=== PATIENT | female | born 1985 | race Caucasian/White ===

== ENCOUNTER 2019-08-13 12:47 | Outpatient (CLI) | payer OTHER ==
[2019-08-13 13:11] LABS: BASOPHILS % (AUTO) 0.2 %; EOSINOPHILS # (AUTO) 0.1 10^3/uL (0.0-0.7); EOSINOPHILS % (AUTO) 1.1 %; HGB - HEMOGLOBIN 14.4 g/dL (12.0-16.0); LYMPHOCYTES # (AUTO) 1.2 10^3/uL (1.5-3.5); LYMPHOCYTES % (AUTO) 14.1 %; MEAN CORPUSCULAR HEMOGLOBIN 30.8 pg (27.0-31.0); MEAN CORPUSCULAR HGB CONC 33.1 g/dL (32.0-36.0); MEAN CORPUSCULAR VOLUME 92.9 fL (81.0-99.0); MEAN PLATELET VOLUME 10.7 fL (7.9-10.8); MONOCYTES # (AUTO) 0.9 10^3/uL (0.0-1.0); MONOCYTES % (AUTO) 10.7 %; NEUTROPHILS % (AUTO) 73.3 %; PLT - PLATELET COUNT 171 10^3/uL (130-450); RED BLOOD COUNT 4.68 10^6/uL (4.20-5.40); WHITE BLOOD COUNT 8.2 x10^3/uL (4.8-10.8)
[2019-08-13 13:12] LABS: BILIRUBIN,URINE NEGATIVE (NEGATIVE); GLUCOSE, URINE (UA) NEGATIVE (NEGATIVE); KETONES,URINE (UA) NEGATIVE (NEGATIVE); LEUKOCYTE ESTERASE, URINE TRACE (NEGATIVE); NITRITE,URINE NEGATIVE (NEGATIVE); OCCULT BLOOD,URINE NEGATIVE (NEGATIVE); PH,URINE 5.5 PH (5.0-7.5); PROTEIN,URINE NEGATIVE (NEGATIVE); UROBILINOGEN,URINE 0.2 (NORMAL) E.U./dL (NORMAL)
[2019-08-13 13:13] LABS: CLARITY,URINE HAZY (CLEAR)
[2019-08-13 13:30] LABS: BACTERIA,URINE Moderate /HPF (None Seen); RBC,URINE 0-5 /HPF (0-5); SQUAMOUS EPITHELIAL CELL,UR MOD Squamous (<= Few)
== END 2019-08-13 12:48 | disposition home or self-care (01) ==
LOC: LAB 12:47
PROVIDERS: ATTEND Obstetrics & Gynecology
DX: Z01.812 Encounter for preprocedural laboratory examination (principal); O34.211 Maternal care for low transverse scar from previous cesarean delivery; Z3A.00 Weeks of gestation of pregnancy not specified
CPT/HCPCS: 36415; 81001; 81003; 85025; 86850; 86900; 86901

== ENCOUNTER 2019-08-14 06:54 | Inpatient (IN) | payer OTHER ==
--- NOTE | 2019-08-14 07:28 | HISTORY & PHYSICAL EXAMINATION ---
Admit History - Visit Reason Visit Reason: Other (planned RLTCD) - : 3 Parity: 1 Premature: 0 Ectopic: 0 : 1 Care: positive: Codi Risk/History: positive: Previous Complications This : positive: None Smoking Status: Never smoker - Mother's Labs Mother's Blood Type: positive: O Mother's RH: positive: Positive GBS: positive: Group B Step Negative Rubella Status: positive: Immune - Other Maternal History Other Maternal History: Abnl 1h, normal 3h GTT. Medical hx notable for Kawasaki's disease at age 4 with normal TTE and SAVAGE in [place] in adulthood. also c/b excessive wt gain. Meds/Allgy - Home Medications Home Medications: Ambulatory Orders Medication Instructions Recorded Confirmed Vitamin [Trinatal Rx 1] 08/14/19 - Allergies Allergies/Adverse Reactions: Allergies Allergy/AdvReac Type Severity Reaction Status Date / Time No Known Drug Allergies Allergy Verified 08/14/19 07:27 Review of Systems - Constitutional Constitutional: denies: Fever, Chills - Cardiovascular Cariovascular: denies: Palpitations, Chest pain - Respiratory Respiratory: denies: Cough, SOB at rest - Gastrointestinal Gastrointestinal: denies: Abdominal pain - Genitourinary Genitourinary: denies: Dysuria - Integumentary Integumentary: denies: Rash - Psychiatric Psychiatric: reports: Anxiety Physical - Abdominal Exam Contraction Frequency (min/apart): none Uterine Resting Tone: positive: Soft - Monitoring Heart Rate Baseline: 130 Strip Review: positive: Category I - Presentation Presentation: positive: Vertex (by River[facility]) - Vaginal Exam Membranes: positive: Membranes intact Plan for Labor - Plan For Labor I expect patient to be DC'd or transferred within 96 hours.: Yes Plan for Labor: 34 yo here at 39+0 wga presents for planned RLTCD. GBS negative. c/b excessive wt gain and abnl 1h, normal 3h GTT. Maternal hx notable for Kawasaki's disease at age 4 with normal echo in adulthood (at [facility], no records). Surgical hx notable for prior LTCD x 1. Hct 43.5, plts 171. Anterior placenta. EFW 7#. FHR category I, reactive NST. -Admit to L&D -Consents signed/on chart -PPH risk is medium d/t prior -Ancef for SSI prophylaxis -SCDs for VTE prophylaxis -Routine postoperative care, anticipate discharge in 48 hours
[2019-08-14] MEDS ORDERED: ceFAZolin 2 GM in SODIUM CHLORIDE 0.9% 100ML 100 ML IV SCH (09:00)
[2019-08-14] MEDS ORDERED: MORPHINE PF 5 MG/10 ML AMP EP ONE (09:42)
[2019-08-14] MEDS ORDERED: fentaNYL 100 MCG/2 ML VIAL IVP ONE (09:42)
[2019-08-14] MEDS ORDERED: KETOROLAC 30 MG/ML VIAL IVP ONE (09:42)
[2019-08-14] MEDS ORDERED: CITRIC ACID/SODIUM CITRATE 15 ML UDC PO ONE (09:42)
[2019-08-14] MEDS ORDERED: PHENYLEPHRINE 10 MG/ML VIAL IV ONE (09:42)
[2019-08-14] MEDS ORDERED: ONDANSETRON 4 MG/2 ML VIAL IVP ONE (09:42)
[2019-08-14] MEDS ORDERED: ePHEDrine 50 MG/ML VIAL IVP ONE (09:42)
[2019-08-14] MEDS ORDERED: METHYLERGONOVINE 0.2 MG/ML AMP ONE (09:53)
--- NOTE | 2019-08-14 10:01 | ANESTHESIA ---
Pre-Anesthesia VS, & Labs - Diagnosis previous C/S - Procedure repeat C/S Height 5 ft 5 in Weight (kg) 83.915 kg - Is Patient ?: Yes - Lab Results Lab results reviewed: Yes Home Medications and Allergies Home Medications: Ambulatory Orders Vitamin [Trinatal Rx 1] 08/14/19 Active Medications Citric Acid/Sodium Citrate (Bicitra) 15 ml PO ONCE ONE Stop: 08/14/19 09:43 Vitamin [Trinatal Rx 1] 08/14/19 Allergies/Adverse Reactions: Allergies Allergy/AdvReac Type Severity Reaction Status Date / Time No Known Drug Allergies Allergy Verified 08/14/19 07:27 Anes History & Medical History - Anesthetic History Anesthesia Complications: reports: No previous complications Family history of Anesthesia Complications: Denies Family history of Malignant Hyperthermia: Denies - Medical History Cardiovascular: reports: None Pulmonary: reports: None Gastrointestinal: reports: None Musculoskeletal: reports: None Endocrine/Autoimmune: reports: None Blood Disorders: reports: None Smoking Status: Never smoker - Obstetrical History : 3 Parity: 1 Events: positive: Previous Complications: positive: None Exam General: Alert, Oriented x3, Cooperative Dental: WNL Mouth Openin Fingerbreadth Neck Mobility: Normal Mallampati classification: II Thyromental Distance: greater than 6 cm Respiratory: Lungs clear, Normal breath sounds, No respiratory distress Cardiovascular: Regular rate Neurological: Normal speech Mental/Cognitive Status: Alert/Oriented X3, Normal for patient Cognitive Status: Within normal limits Plan Anesthesia Type: Spinal Consent for Procedure(s) Verified and Reviewed: Yes Code Status: Attempt Resuscitation ASA classification: 2-Mild systemic disease Is this case an emergency?: No
[2019-08-14] MEDS ORDERED: LACTATED RINGERS 500 ML IV ONE (10:07)
[2019-08-14] MEDS ORDERED: LACTATED RINGERS 1,000 ML IV ONE ×4 (10:08→15:08)
[2019-08-14] MEDS ORDERED: SODIUM CHLORIDE FLUSH 0.9% 10 ML SYRINGE IVP PRN (11:53)
[2019-08-14] MEDS ORDERED: ONDANSETRON 4 MG/2 ML VIAL IVP PRN (11:53)
[2019-08-14] MEDS ORDERED: LACTATED RINGERS 1,000 ML IV SCH (12:00)
--- NOTE | 2019-08-14 12:02 | OPERATIVE REPORT ---
Operative Report - General Admit Date: 08/14/19 Procedure Date: 08/14/19 Planned Procedure: repeat low transverse delivery Pre-Op Diagnosis: uterus at 39+0 wga, prior uterine scar Procedure Performed: repeat low transverse delivery Post Op Diagnosis: same as above, delivered - Procedure Note Primary Surgeon: Franco Bryant Secondary Surgeon: Espinoza Mendoza Anesthesia Technique: Spinal Pathology: none IV Fluids (mL): 700 Estimated Blood Loss (mL): 600 Urine Output (mL): 40 Indications: prior uterine scar Findings: Viable female with APGARS of 4, 5 and 7. See infant record for further details. No complications. Double layer uterine closure. Normal bilateral ovaries and fallopian tubes. Complications: none - Other Other Information/Narrative: After informed consent was assured, pt was taken to the OR with IV fluids running. Spinal anesthesia was obtained. Pt was positioned dorsal supine with right hip roll. Boudreaux catheter was placed. Doptones following anesthesia were 140s. The patient was prepped and draped in a sterile fashion. Anesthesia was tested and confirmed to be adequate. Body followed controlled. Pfannenstiel incision made through existing scar and carried sharply down to the rectus which was scored on each side. Fascial incision was extended laterally with scissors on each side. The fascia was then dissected off the rectus muscles both caudad and cephalad. The rectus muscles were in the midline and the peritoneum was identified and entered sharply. The peritoneal incision was bluntly extended with good exposure of the lower uterine segment. A bladder flap was created sharply. A transverse incision was made in the lower uterine segment, with amniotomy and return of clear fluid. The incision was extended bluntly with cephalad-caudad traction. The 's head was grasped and delivered through the incision, body followed controlled. Good tone but weak cry on the field; cord was clamped x 2 and cut, infant passed off the field. Cord blood was collected. The placenta was delivered intact with gentle cord traction. The uterus was exteriorized and the cavity was swept with no retained tissue noted. The hysterotomy was reapproximated with a running locked suture of 0 chromic. A second suture of 0 chromic was placed in an embricating layer in a horizontal fashion. Good hemostasis was noted. Good fundal tone throughout repair. The uterus was returned to the abdomen. The fascia was reapproximated with a running suture of 0 PDS. The subcutaneous space was reapproximated with interrupted sutures of 2-0 vicryl to reduce tension on the skin closure. The skin was closed with a subcuticular suture of 4-0 monocryl. Steristrips were placed over the incision and it was covered with a pressure dressing. A final crede expressed small clot and revealed excellent uterine tone. Sponge and instrument counts were correct. No complications appreciated. The patient was stable and was taken to Labor and Delivery to recover.
--- NOTE | 2019-08-14 12:12 | DELIVERY NOTE ---
Delivery Note - Labor Labor: positive: Other (scheduled c/s) - Delivery Method Infant Delivery Method: positive: Repeat - Presentation Presentation: positive: Vertex, BRY - left occiput anterior - Nuchal Cord Nuchal Cord: positive: None - Anesthetic Anesthetic Type: - Amniotic Fluid Description Amniotic Fluid Description: positive: Clear - Delivery Outcome Delivery Outcome: positive: Livebirth - : positive: Stimulated sex: positive: Female - Placenta Placenta: positive: Intact, Expressed - Estimated Blood Loss Estimated Blood Loss (in cc): 600 - Delivery Comments (Free Text/Narrative) Delivery Comments (Free Text/Narrative): Uncomplicated RLTCD of viable female ; 4, 5 and 7. Double layer uterine closure. Normal uterus and ovaries, no significant adhesive disease. See operative report for full details.
[2019-08-14] MEDS: oxyCODONE 5 MG TABLET PO PRN ×3 (14:00→22:05)
[2019-08-14] MEDS: ACETAMINOPHEN 500 MG TABLET PO SCH ×2 (14:00→22:05)
[2019-08-14] MEDS: KETOROLAC 30 MG/ML VIAL IVP SCH (18:00)
[2019-08-14] MEDS: DOCUSATE SODIUM 100 MG CAPSULE PO SCH (20:42)
[2019-08-14] MEDS: SIMETHICONE CHEW 80 MG TABLET PO SCH (20:42)
[2019-08-15] MEDS: KETOROLAC 30 MG/ML VIAL IVP SCH ×3 (00:28→21:13)
[2019-08-15] MEDS: oxyCODONE 5 MG TABLET PO PRN ×6 (02:30→22:27)
[2019-08-15] MEDS: SODIUM CHLORIDE FLUSH 0.9% 10 ML SYRINGE IVP SCH ×2 (03:42→06:21)
[2019-08-15] MEDS: SIMETHICONE CHEW 80 MG TABLET PO SCH ×4 (05:24→21:15)
[2019-08-15 06:05] LABS: BASOPHILS % (AUTO) 0.4 %; EOSINOPHILS # (AUTO) 0.1 10^3/uL (0.0-0.7); EOSINOPHILS % (AUTO) 1.1 %; HGB - HEMOGLOBIN 11.9 g/dL (12.0-16.0); LYMPHOCYTES # (AUTO) 1.2 10^3/uL (1.5-3.5); LYMPHOCYTES % (AUTO) 11.4 %; MEAN CORPUSCULAR HEMOGLOBIN 31.1 pg (27.0-31.0); MEAN CORPUSCULAR HGB CONC 33.3 g/dL (32.0-36.0); MEAN CORPUSCULAR VOLUME 93.2 fL (81.0-99.0); MEAN PLATELET VOLUME 10.7 fL (7.9-10.8); MONOCYTES % (AUTO) 9.6 %; NEUTROPHILS # (AUTO) 8.2 10^3/uL (1.5-6.6); NEUTROPHILS % (AUTO) 76.8 %; PLT - PLATELET COUNT 146 10^3/uL (130-450); RED BLOOD COUNT 3.83 10^6/uL (4.20-5.40); WHITE BLOOD COUNT 10.7 x10^3/uL (4.8-10.8)
[2019-08-15] MEDS: ACETAMINOPHEN 500 MG TABLET PO SCH ×3 (06:21→22:27)
--- NOTE | 2019-08-15 08:33 | PROVIDER PROGRESS NOTE ---
Subjective - Prog Note Date Prog Note Date: 08/15/19 Prog Note Time: 08:31 - Subjective Pt reports feeling: Improved Subjective: Doing well. Reports some right shoulder pain which is bothersome to her, but improves with ambulation. Voiding spontaneously. Passing flatus. Tolerating regular diet. Light lochia. without issue. Mood is good. No other acute concerns. Objective - Vital Signs/Intake & Output Vital Signs: Vital Signs x48h Temp Pulse Resp BP Pulse Ox 08/15/19 04:06 97.9 F 83 20 108/70 97 Intake & Output: Intake & Output 08/12/19 08/13/19 08/14/19 08/15/19 23:59 23:59 23:59 23:59 Intake Total 3300 1500 Output Total 2620 1275 Balance 680 225 - Objective General Appearance: positive: No acute distress, Alert Abdomen: positive: Other (soft, mild gaseous distention, fundus firm at U and mildly tender. Dressing in place, small spot of strikethrough) Skin: positive: Color nml, No rash Extremities: positive: Non-tender Neurologic/Psychiatric: positive: Oriented x3 - Lab Results Fish Bones: 08/15/19 05:41 Other Labs: Lab Results x24hrs 08/15/19 Range/Units 05:41 WBC 10.7 (4.8-10.8) x10^3/uL RBC 3.83 L (4.20-5.40) 10^6/uL Hgb 11.9 L (12.0-16.0) g/dL Hct 35.7 L (37.0-47.0) % MCV 93.2 (81.0-99.0) fL MCH 31.1 H (27.0-31.0) pg MCHC 33.3 (32.0-36.0) g/dL RDW 13.0 (12.0-15.0) % Plt Count 146 (130-450) 10^3/uL MPV 10.7 (7.9-10.8) fL Neut # (Auto) 8.2 H (1.5-6.6) 10^3/uL Lymph # (Auto) 1.2 L (1.5-3.5) 10^3/uL [place] # (Auto) 1.0 (0.0-1.0) 10^3/uL Eos # (Auto) 0.1 (0.0-0.7) 10^3/uL Baso # (Auto) 0.0 (0.0-0.1) 10^3/uL Absolute Nucleated RBC 0.00 x10^3/uL Nucleated RBC % 0.0 /100WBC Assessment/Plan - Problem List (1) state Impression: 34 yo POD#1 s/p RLTCD. and delivery uncomplicated. Rh positive, Rubella Immune. VS wnl, excellent UOP. Exam benign. . Plans POPs for contraception. -Transition toradol to ibuprofen -Dispo: home tomorrow
[2019-08-15] MEDS: DOCUSATE SODIUM 100 MG CAPSULE PO SCH ×2 (10:22→21:14)
[2019-08-15] MEDS: IBUPROFEN 800 MG TABLET PO SCH ×2 (14:11→22:27)
[2019-08-16] MEDS: oxyCODONE 5 MG TABLET PO PRN ×3 (02:16→10:24)
[2019-08-16] MEDS: IBUPROFEN 800 MG TABLET PO SCH (05:53)
[2019-08-16] MEDS: ACETAMINOPHEN 500 MG TABLET PO SCH (05:55)
--- NOTE | 2019-08-16 07:25 | PROVIDER PROGRESS NOTE ---
Subjective - Prog Note Date Prog Note Date: 08/16/19 Prog Note Time: 07:23 - Subjective Pt reports feeling: Improved Subjective: Pt reports doing well. States shoulder pain much better. Ambulating with some incisional soreness, continuing to require roxicodone q4h. Denies n/v, passing flatus. Voiding normally. Lochia is light. without difficulty. Objective - Vital Signs/Intake & Output Vital Signs: Vital Signs x48h Temp Pulse Resp BP Pulse Ox 08/16/19 06:30 98.6 F 82 15 115/66 97 08/15/19 23:45 97.7 F 82 16 115/63 97 Intake & Output: Intake & Output 08/13/19 08/14/19 08/15/19 08/16/19 23:59 23:59 23:59 23:59 Intake Total 3300 1500 Output Total 2620 1275 Balance 680 225 - Objective General Appearance: positive: No acute distress Abdomen: positive: Other (soft, mild gaseous distention, fundus firm at U-1. Dressing removed, steristrips in place with some slight red strikethrough but no active bleeding, incision c/d/i) Skin: positive: Color nml, No rash Extremities: positive: Non-tender Neurologic/Psychiatric: positive: Oriented x3 - Lab Results Fish Bones: 08/15/19 05:41 Assessment/Plan - Problem List (1) state Impression: 34 yo POD#2 s/p RLTCD. and delivery uncomplicated. Rh pos, Rub Imm. VS wnl, exam benign. . Plans POPs for contraception. Dispo. Home today. Rvwd discharge instructions, reasons to seek care. F/u as scheduled in clinic next week.
--- NOTE | 2019-08-16 07:29 | DISCHARGE SUMMARY ---
"Discharge Summary Admit Date: 08/14/19 Discharge Date: 08/16/19 Discharging Provider: Franco Bryant Code Status: Attempt Resuscitation Condition at Discharge: Good Discharge Disposition: 01 Home, Self Care - DIAGNOSES Admission Diagnoses: 1. uterus at 39 wga 2. prior uterine scar Discharge Diagnoses with Status of Each Condition: same as above, delivered - HPI History of Present Illness: 34 yo admitted at 39+0 wga for planned repeat low transverse delivery. - CONSULTS | PROCEDURES Consultations: anesthesia - HOSPITAL COURSE Hospital Course: Pt underwent uncomplicated RLTCD. On POD#1 her groves catheter was removed and she was able to void without difficulty. She remained afebrile and normotensive throughout her course. At the time of discharge she was ambulating, voiding, passing flatus, tolerating regular diet and pain was controlled with oral medications. She was discharged home in good condition with close interval follow up. - ALLERGIES Allergies/Adverse Reactions: Allergies Allergy/AdvReac Type Severity Reaction Status Date / Time No Known Drug Allergies Allergy Verified 08/14/19 07:27 - MEDICATIONS Home Medications: Ambulatory Orders Medication Instructions Recorded Confirmed Vitamin [Trinatal Rx 1] 08/14/19 Home Medications Other | Comments: 1. Ibuprofen 800 mg take 1 tab by mouth every 8 hours 2. Tylenol 325 mg take 3 tabs by mouth every 6 hours 3. Roxicodone 5 mg take 1 tab by mouth every 4-6 hours as needed for pain not relieved by other medications 4. Surfak 240 mg take 1 cap by mouth twice daily - PHYSICAL EXAM AT DISCHARGE General Appearance: positive: No acute distress (see progress note for full exam) - LABS Result Diagrams: 08/15/19 05:41 - QUALITY (Female Hip Fx Only) Was patient sent home on osteoporosis medication?: No - FOLLOW UP Follow Up: Follow up with Dr. Bryant at [facility] as scheduled - TIME SPENT Time Spent in Discharge (Minutes): 30"
[2019-08-16] MEDS: DOCUSATE SODIUM 100 MG CAPSULE PO SCH (10:24)
[2019-08-16 11:39] VITALS: BP 125/76
--- NOTE | 2019-08-16 11:43 | Labor Flowsheet ---
Labor Flowsheet Datetime Report Generated by CPN: 08/16/2019 11:42 Datetime: 08/16/2019 09:41 VAGINAL EXAM Membranes Ruptured Date/Time: 08/14/2019 11:16 Membranes Rupture Method: Artificial Amniotic Fluid Color: Clear
== END 2019-08-16 11:30 | disposition home or self-care (01) | DRG 788 ==
LOC: FBP 06:54
PROVIDERS: ADMIT Obstetrics & Gynecology; ATTEND Obstetrics & Gynecology
PROC: 10D00Z1 Extraction of Products of Conception, Low, Open Approach (ICD-10-PCS; principal; 2019-08-14 10:00)
DX: O34.211 Maternal care for low transverse scar from previous cesarean delivery (principal); N85.8 Other specified noninflammatory disorders of uterus; O99.89 Other specified diseases and conditions complicating pregnancy, childbirth and the puerperium; M25.511 Pain in right shoulder; Z3A.39 39 weeks gestation of pregnancy; Z37.0 Single live birth; Z87.39 Personal history of other diseases of the musculoskeletal system and connective tissue
CPT/HCPCS: 36415; 85025

== ENCOUNTER 2019-09-07 13:15 | Emergency (ER) | payer OTHER ==
[2019-09-07 13:54] LABS: BASOPHILS % (AUTO) 0.6 %; EOSINOPHILS # (AUTO) 0.2 10^3/uL (0.0-0.7); EOSINOPHILS % (AUTO) 3.3 %; HGB - HEMOGLOBIN 14.4 g/dL (12.0-16.0); LYMPHOCYTES # (AUTO) 1.4 10^3/uL (1.5-3.5); LYMPHOCYTES % (AUTO) 25.2 %; MEAN CORPUSCULAR HEMOGLOBIN 30.6 pg (27.0-31.0); MEAN CORPUSCULAR HGB CONC 33.7 g/dL (32.0-36.0); MEAN CORPUSCULAR VOLUME 90.7 fL (81.0-99.0); MEAN PLATELET VOLUME 10.1 fL (7.9-10.8); MONOCYTES # (AUTO) 0.5 10^3/uL (0.0-1.0); MONOCYTES % (AUTO) 9.2 %; NEUTROPHILS # (AUTO) 3.3 10^3/uL (1.5-6.6); NEUTROPHILS % (AUTO) 61.5 %; PLT - PLATELET COUNT 273 10^3/uL (130-450); RED BLOOD COUNT 4.71 10^6/uL (4.20-5.40); RED CELL DISTRIBUTION WIDTH 11.5 % (12.0-15.0); WHITE BLOOD COUNT 5.4 x10^3/uL (4.8-10.8)
[2019-09-07 14:08] LABS: ALBUMIN 4.2 g/dL (3.2-5.5); ALBUMIN/GLOBULIN RATIO 1.3 (1.0-2.2); BILIRUBIN,TOTAL 0.8 mg/dL (0.2-1.0); CALCIUM 9.5 mg/dL (8.5-10.3); CREATININE 0.8 mg/dL (0.4-1.0); TOTAL PROTEIN 7.5 g/dL (6.7-8.2)
[2019-09-07] MEDS: ACETAMINOPHEN 325 MG TABLET PO STA (14:11)
[2019-09-07 14:14] LABS: BILIRUBIN,URINE NEGATIVE (NEGATIVE); GLUCOSE, URINE (UA) NEGATIVE (NEGATIVE); KETONES,URINE (UA) NEGATIVE (NEGATIVE); LEUKOCYTE ESTERASE, URINE NEGATIVE (NEGATIVE); NITRITE,URINE NEGATIVE (NEGATIVE); OCCULT BLOOD,URINE NEGATIVE (NEGATIVE); PROTEIN,URINE NEGATIVE (NEGATIVE); UROBILINOGEN,URINE 0.2 (NORMAL) E.U./dL (NORMAL)
[2019-09-07 14:15] LABS: CLARITY,URINE CLEAR (CLEAR)
--- NOTE | 2019-09-07 14:17 | ED Physician Documentation ---
History of Present Illness - Stated complaint Stated Complaint: POST OP PX - Chief complaint Chief Complaint: Abd Pain - History obtained from History obtained from: Patient - History of Present Illness Timing: How many weeks ago (3) Pain level max: 7 Pain level now: 6 - Additonal information Additional information: 34 year old female 3 weeks s/p . states LUQ abd pain for the past several days. No vomiting. No diarrhea. Took Gas-X without relief. She is breast-feeding. Has not taken anything else for the pain. States that it hurts to take a deep breath. Has not seen her OB for this. She states she has had symptoms with her back and abdomen since the . Review of Systems Constitutional: denies: Fever, Chills Throat: denies: Sore throat Cardiac: denies: Chest pain / pressure Respiratory: denies: Cough, Wheezing Skin: denies: Rash Musculoskeletal: denies: Neck pain, Back pain Neurologic: denies: Headache PD PAST MEDICAL HISTORY - Past Medical History Cardiovascular: None Respiratory: None Endocrine/Autoimmune: None GI: None Musculoskeletal: None - Present Medications Home Medications: Ambulatory Orders Medication Instructions Recorded Confirmed Vitamin [Trinatal Rx 1] 08/14/19 Oxycodone HCl/Acetaminophen 1 - 2 each PO Q6H PRN #10 tablet 09/07/19 [Percocet 5-325 mg Tablet] - Allergies Allergies/Adverse Reactions: Allergies Allergy/AdvReac Type Severity Reaction Status Date / Time No Known Drug Allergies Allergy Verified 09/07/19 13:24 - Social History Smoking Status: Never smoker PD ED PE NORMAL - Vitals Vital signs reviewed: Yes - General General: Alert and oriented X 3, No acute distress - HEENT HEENT: Moist mucous membranes - Neck Neck: Supple, no meningeal sign - Cardiac Cardiac: RRR - Respiratory Respiratory: No respiratory distress, Clear bilaterally - Abdomen Abdomen: Soft, Non distended, Other (Tender palpation left upper quadrant. Th ere is guarding and rebound.) - Derm Derm: Warm and dry - Extremities Extremities: No edema, No calf tenderness / cord - Neuro Neuro: Alert and oriented X 3 - Psych Psych: Normal mood, Normal affect Results - Vitals Vitals: Vital Signs - 24 hr 09/07/19 09/07/19 13:24 16:07 Temperature 36.6 C Heart Rate 79 65 Respiratory 14 20 Rate Blood Pressure 130/78 117/80 O2 Saturation 97 97 Oxygen O2 Source Room air - Labs Labs: Laboratory Tests 09/07/19 09/07/19 09/07/19 13:47 13:47 13:52 WBC 5.4 RBC 4.71 Hgb 14.4 Hct 42.7 MCV 90.7 MCH 30.6 MCHC 33.7 RDW 11.5 L Plt Count 273 MPV 10.1 Neut # (Auto) 3.3 Lymph # (Auto) 1.4 L [place] # (Auto) 0.5 Eos # (Auto) 0.2 Baso # (Auto) 0.0 Absolute Nucleated RBC 0.00 Nucleated RBC % 0.0 Sodium 136 Potassium 4.0 Chloride 102 Carbon Dioxide 26 Anion Gap 8.0 BUN 14 Creatinine 0.8 Estimated GFR (MDRD) 83 L Glucose 103 H Calcium 9.5 Total Bilirubin 0.8 AST 21 ALT 28 Alkaline Phosphatase 78 Total Protein 7.5 Albumin 4.2 Globulin 3.3 Albumin/Globulin Ratio 1.3 Lipase 28 Urine Color YELLOW Urine Clarity CLEAR Urine pH 6.0 Ur Specific [place] 1.015 Urine Protein NEGATIVE Urine Glucose (UA) NEGATIVE Urine Ketones NEGATIVE Urine Occult Blood NEGATIVE Urine Nitrite NEGATIVE Urine Bilirubin NEGATIVE Urine Urobilinogen 0.2 (NORMAL) Ur Leukocyte Esterase NEGATIVE Ur Microscopic Review NOT INDICATED Urine Culture Comments NOT INDICATED - Rads (name of study) CT chest Radiology: Prelim report reviewed, EMP read contemporaneously, See rad report (1. No acute pulmonary emboli or focal consolidation. 2. Low lung volumes with bibasilar atelectasis.) CT abd/pelvis Radiology: Prelim report reviewed, EMP read contemporaneously, See rad report (1. Probable small hematoma in evolution posterior to the lower uterine segment, measuring 4 x 1.6 x 4.4 cm. Consistent with recent section. 2. Liver cysts. ) PD MEDICAL DECISION MAKING - ED course Complexity details: reviewed results, re-evaluated patient, considered differential, d/w patient, d/w government operations consultant ED course: Patient with abdominal pain of unclear etiology. I discussed the case with her OB Dr. Bryant who was concerned about a possible PE. CT scans were performed with no acute findings. Patient is well-appearing, nontoxic. Will prescribe pain medication for home. No fevers. No sepsis. Patient counseled regarding signs and symptoms for which I believe and urgent re-evaluation would be necessary. Patient with good understanding of and agreement to plan and is comfortable going home at this time This document was made in part using voice recognition software. While efforts are made to proofread this document, sound alike and grammatical errors may occur. Departure - Departure Disposition: 01 Home, Self Care Clinical Impression: Abdominal pain Qualifiers: Abdominal location: left upper quadrant Qualified Code(s): R10.12 - Left upper quadrant pain Condition: Good Instructions: ED Abdominal Pain Unkn Cause Follow-Up: Andrew Donaldson ARNP [Primary Care Provider] - Within 1 week Prescriptions: Oxycodone HCl/Acetaminophen [Percocet 5-325 mg Tablet] 1 - 2 each PO Q6H PRN #10 tablet PRN Reason: pain Comments: Return if you worsen. Your testing is normal today. Follow-up with your doctor for further care. Do not drink alcohol or drive while on narcotic pain medicine. Note that many narcotic pain relievers also contain tylenol/acetaminophen. Please ensure that your total dose of acetaminophen from all sources does not exceed 3 grams (3000mg) per day. You may constipated on this medication, take a stool softener such as "Colace" twice a day while you are on it. Also recommend a [id number] laxative such as senna or MiraLAX any day that you do not have a bowel movement. If you received narcotic pain medication in the emergency department, do not drive or operate machinery for the next 24 hours. Discharge Date/Time: 09/07/19 17:05
[2019-09-07] MEDS ORDERED: IOVERSOL 320 100 ML VIAL IVP ONE (14:20)
[2019-09-07] MEDS: SODIUM CHLORIDE 0.9% 1,000 ML IV ONE (15:07)
[2019-09-07 16:08] VITALS: BP 117/80
[2019-09-07] MEDS: IOVERSOL 320 100 ML VIAL IVP ONE (16:20)
--- NOTE | 2019-09-07 16:32 | CT Report ---
Reason: L chest pain s/p , possible PE? Procedure Date: 09/07/2019 Accession Number: [id number] / [id number] Procedure: CT - ANGIO CHEST W/WO CPT Code: Final Report FULL RESULT: EXAM: CT ANGIOGRAM CHEST EXAM DATE: 09/07/2019 04:00 PM. CLINICAL HISTORY: Left chest pain status post , rule out pulmonary embolism. COMPARISON: None. TECHNIQUE: Routine helical imaging was performed through the chest in the pulmonary arterial phase. IV Contrast: OPTI 320 90ML. Reconstructions: Coronal 3-D MIP reconstructions.Sagittal and coronal. In accordance with CT protocol optimization, one or more of the following dose reduction techniques were utilized for this exam: automated exposure control, adjustment of mA and/or KV based on patient size, or use of iterative reconstructive technique. FINDINGS: Pulmonary Arteries: Diagnostic quality: Adequate through the segmental arteries. No evidence for acute or chronic pulmonary emboli. RV/LV is within normal limits. There is no interventricular septal bowing. There is no reflux of contrast material in the IVC. Lungs/Pleura: Probable bilaterally symmetric basilar atelectasis present. No definable focal consolidation, effusions or edema. No focal pulmonary nodules identified. Mediastinum: Normal. No cardiac enlargement or adenopathy. Thoracic Aorta: Unremarkable. Upper Abdomen: A small hypodensity in the posterior aspect of the liver segment 6/7 measures 1.3 cm, likely a cyst. Other: None. IMPRESSION: 1. No acute pulmonary emboli or focal consolidation. 2. Low lung volumes with bibasilar atelectasis. RADIA
--- NOTE | 2019-09-07 16:35 | CT Report ---
Reason: LUQ pain s/p Procedure Date: 09/07/2019 Accession Number: [id number] / [id number] Procedure: CT - Abdomen/Pelvis W CPT Code: Final Report FULL RESULT: EXAM: CT ABDOMEN AND PELVIS EXAM DATE: 09/07/2019 04:00 PM. CLINICAL HISTORY: LUQ pain s/p . COMPARISONS: None. TECHNIQUE: Routine helical CT imaging was performed through the abdomen and pelvis. IV contrast: OPTI 320 90ML. Enteric contrast: No. Reconstructions: Coronal and sagittal. In accordance with CT protocol optimization, one or more of the following dose reduction techniques were utilized for this exam: automated exposure control, adjustment of mA and/or KV based on patient size, or use of iterative reconstructive technique. FINDINGS: Lung Bases: Unremarkable, see separate report CT chest. Liver: Nearly 9 mm ill-defined low-density lesion in the lateral left lobe of the liver, image 14 of series 6. Too small to further characterize. In the posterior right lobe near the liver margin, image 23 of series 6, There is a 13 mm cyst. Gallbladder/Bile Ducts: Unremarkable. Spleen: Normal. Pancreas: Normal. Adrenal Glands: Normal. Kidneys: Normal. No masses or hydronephrosis. Peritoneal Cavity/Bowel: Some diastases of the rectus muscles at the level the umbilicus, with portion of the transverse colon protruding slightly. No proximal dilatation that would suggest obstruction. No areas of bowel wall thickening. No free air. The appendix is well visualized and normal. Pelvic Organs: Mildly enlarged uterus compatible with history of recent . Uterus is otherwise normal. No adnexal masses are seen. There is a trace amount of fluid posterior to the uterus in the rectouterine space, with attenuation greater than that of water. Measures 4.0 x 1.6 x 4.4 cm. Urinary bladder is normal. Vasculature: No aneurysms or other significant abnormality. Bones: No significant abnormality. Other: Scar along the low anterior pelvis compatible with recent section. No fluid collections. IMPRESSION: 1. Probable small hematoma in evolution posterior to the lower uterine segment, measuring 4 x 1.6 x 4.4 cm. Consistent with recent section. 2. Liver cysts. RADIA
== END 2019-09-07 17:05 | disposition home or self-care (01) ==
LOC: ED 13:15
DX: O90.89 Other complications of the puerperium, not elsewhere classified (principal); R10.12 Left upper quadrant pain; Z98.891 History of uterine scar from previous surgery
CPT/HCPCS: 36415; 71275; 74177; 80053; 81001; 81003; 83690; 85025; 87086; 96360; 96361; 99284

== ENCOUNTER 2020-09-01 12:31 | Outpatient (CLI) | payer OTHER ==
[2020-09-01] MEDS ORDERED: BUFFERED LIDOCAINE 10 ML SYRINGE ONE (12:51)
[2020-09-01] MEDS ORDERED: GADOBUTROL 7.5 MMOL/7.5 ML VIAL ONE (12:52)
[2020-09-01] MEDS ORDERED: GADOBUTROL 7.5 MMOL/7.5 ML VIAL IVP ONE (13:52)
[2020-09-01] MEDS ORDERED: BUFFERED LIDOCAINE 10 ML SYRINGE IU ONE (13:54)
[2020-09-01] MEDS ORDERED: iohexoL-240 10 ML VIAL IVP ONE (13:55)
--- NOTE | 2020-09-01 14:52 | XRAY Report ---
PROCEDURE: Arthrogram Needle Placement INDICATIONS: LT SH BICIPITAL TENDINITIS, LT SHOULDER PAIN CONTRAST: CONTRAST: GADAVIST/ OMN FLUOROSCOPY TIME: FLUORO TIME: 0:23 min and NUMBER IMAGES: 2 TECHNIQUE: The indications, alternatives, benefits, risks, and complications of the procedure were explained to the patient. Written informed consent was obtained and placed in the chart. The shoulder was examin ed fluoroscopically and a site for needle placement chosen for entry into the glenohumeral joint from an anterior approach. The skin was prepped and draped in the usual fashion, and 1% lidocaine infilt rated from skin down to joint capsule. A spinal needle was inserted into the glenohumeral joint, and a small amount of iodinated contrast media injected to confirm intra-articular placement of the need le tip. This was followed by approximately 12 mL dilute solution of a gadolinium containing MR contr ast agent. The needle was removed and a dressing was applied. The patient was given postprocedural instructions and sent to the MR suite for MR imaging. FINDINGS: A single fluoroscopic spot image demonstrates intra-articular location of injected iodinated contrast . IMPRESSION: Successful fluoroscopically guided administration of dilute Gadolinium solution into the shoulder kateryna nt for MR arthrogram. Reviewed by: Prem Guzman MD on 09/01/2020 2:50 PM PST Approved by: Prem Guzman MD on 09/01/2020 2:50 PM PST Station ID: [id number]
--- NOTE | 2020-09-01 15:21 | MRI Report ---
PROCEDURE: Arthrogram Shoulder LT INDICATIONS: LT SH BICIPITAL TENDINITIS, LT SHOULDER PAIN CONTRAST: Intra-articular gadolinium contrast material. TECHNIQUE: After the administration of 12 mL of dilute intra-articular Gadolinium contrast, oblique coronal T1 a nd T2 spin echo with fat saturation, oblique sagittal T1 spin echo with and without fat saturation, o blique sagittal T2 fast spin echo with fat saturation, axial T1 spin echo with fat saturation through the shoulder. COMPARISON: None. FINDINGS: Image quality: Excellent. Rotator cuff: Supraspinatus tendinopathy with low-grade bursal and articular surface fraying. The inf raspinatus and teres minor tendons. Intact. Subscapularis tendon is intact. Fatty infiltration of the supraspinatus and infraspinatus muscles. No definite atrophy. Bones and bursae: No bone marrow contusions or fractures. Mild/moderate acromioclavicular joint degeneration. The acromion demonstrates conventional anatomy, without an os acromiale. Mild subacromial/subdeltoid bursal fluid is present. Capsule and soft tissues: Labrum: Incidental sublabral foramen. Minimal degenerative fraying of the labrum without discrete tea r. The long head of the biceps tendon demonstrates normal location and morphology. The rotator interval appears normal, without fibrosis. The coracohumeral ligament is normal in thickness. IMPRESSION: Supraspinatus tendinopathy with low-grade bursal and articular surface fraying. Mild subacromial-subdeltoid bursitis Intact appearance of the long head biceps tendon Reviewed by: Prem Guzman MD on 09/01/2020 3:20 PM PST Approved by: Prem Guzman MD on 09/01/2020 3:20 PM PST Station ID: [id number]
== END 2020-09-01 12:32 | disposition home or self-care (01) ==
LOC: DI 12:31
PROVIDERS: ATTEND Orthopaedic Surgery
DX: M75.92 Shoulder lesion, unspecified, left shoulder (principal); M75.52 Bursitis of left shoulder
CPT/HCPCS: 23350; 73222; 77002; A9585; Q9966